=== PATIENT | female | born 1995 | race Caucasian/White ===

== ENCOUNTER 2017-05-22 00:54 | Emergency (ER) | payer OTHER ==
--- NOTE | 2017-05-24 00:08 | ER ---
DATE SEEN: 05/22/2017 CHIEF COMPLAINT: Palpitations. HISTORY OF PRESENT ILLNESS: This is a 22-year-old female with palpitations that has been there for approximately few hours. Her friends brought her in. She feels anxious and stressed. She also complains of chest pain when she coughs and breathes deep. REVIEW OF SYSTEMS: No fever or chills. No cough or shortness of breath. She does say that she has had history previously of anxiety, but not this bad. SOCIAL HISTORY: Does not smoke or drink. PAST MEDICAL HISTORY: Outside of anxiety, she has no other past medical problems. FAMILY HISTORY: Father has atrial fibrillation. PHYSICAL EXAMINATION: GENERAL: Nontoxic in appearance. VITAL SIGNS: Afebrile. Normal vital signs. ENT: Negative. NECK: Supple. CHEST: Clear. CARDIOVASCULAR: Palpitations. DIAGNOSTIC STUDIES: Labs none. EKG normal sinus rhythm. FINAL IMPRESSION: Palpitations. PLAN: Reassurance. If symptoms are not improved by next week, she will be seen in the clinic. TIME SEEN: 1348 hours. /[id number] EUGENIA/KATE
== END 2017-05-22 02:00 | disposition home or self-care (01) ==
LOC: FB.ED 00:54
DX: R00.2 Palpitations (principal)
CPT/HCPCS: 93005; 99283